=== PATIENT | male | born 1970 | race American Indian/Alaskan Native ===

== ENCOUNTER 2017-06-23 17:50 | Emergency (ER) | payer SELFPAY ==
--- NOTE | 2017-06-23 19:41 | XRay Report ---
FINAL REPORT PROCEDURE: XR HAND 2V LT TECHNIQUE: LEFT hand radiographs, AP and lateral views. CPT 06797-WO HISTORY: Deep laceration with razor. COMPARISON: No prior studies are available for comparison. FINDINGS: Fracture (s) and/or Dislocation(s): Subtle irregularity about the scaphoid. Subtle irregularity about the distal 5th finger. Alignment: Normal . Joint space(s): Normal . Soft tissues: Palmar soft tissue defect. Bone mineralization: Normal . Foreign bodies: None . IMPRESSION: Subtle irregularity about the scaphoid, likely chronic/degenerative. Consider further characterization including dedicated scaphoid views if there is concern for subtle fracture this area. Subtle irregularity about the distal 5th finger, may be related to somewhat bifid tuft of the distal phalanx. This can also be re-evaluated on followup radiographs if there is continued clinical concern. Palmar soft tissue defect, concerning for large laceration. Consider correlation clinically if this extends to the underlying bone. No radiopaque foreign body. Please note some foreign bodies are not radiopaque and therefore not visualized on radiograph.
[2017-06-23] MEDS ORDERED: XYLOCAINE 1% 20 mL ONE (20:09)
[2017-06-23] MEDS ORDERED: NACL 0.9% 500 ML IR ONE (20:35)
[2017-06-23] MEDS ORDERED: XYLOCAINE 1% 20 mL INFILTRATI ONE (20:39)
[2017-06-23] MEDS ORDERED: NACL 0.9% IR ONE (20:39)
[2017-06-23] MEDS ORDERED: XYLOCAINE 1%/ EPI 1:100,000 INFILTRATI ONE ×2 (20:46→21:00)
[2017-06-23 20:54] LABS: Basophils % (Auto) 0.2 % (0.0-1.8); Eosinophils # (Auto) 0.2 K/mm3 (0.0-0.4); Hematocrit 43.4 % (35.5-45.6); Hemoglobin 14.6 gm/dl (11.8-15.2); Lymphocytes # (Auto) 1.9 K/mm3 (1.2-5.4); Lymphocytes % (Auto) 24.6 % (13.4-35.0); Mean Corpuscular HGB Conc 34 % (32-34); Mean Corpuscular Hemoglobin 29 pg (28-32); Mean Corpuscular Volume 86 fl (84-94); Monocytes # (Auto) 0.8 K/mm3 (0.0-0.8); Monocytes % (Auto) 10.6 % (0.0-7.3); Platelet Count 252 K/mm3 (140-440); Red Blood Count 5.04 M/mm3 (3.65-5.03); Red Cell Distribution Width 13.9 % (13.2-15.2)
[2017-06-23 21:02] LABS: BUN/Creatinine Ratio 14; Blood Urea Nitrogen 13 mg/dL (9-20); Calcium 9.4 mg/dL (8.4-10.2); Hemolysis Index 14
[2017-06-23] MEDS ORDERED: NORCO 5/325 PO ONE (21:34)
[2017-06-23] MEDS ORDERED: KEFLEX PO ONE (21:34)
[2017-06-23] MEDS ORDERED: NORVASC PO ONE (21:43)
[2017-06-23] MEDS ORDERED: TRIPLE ANTIBIOTIC TP ONE (21:45)
--- NOTE | 2017-06-23 21:45 | Emergency Department Report ---
- General Chief Complaint: Wound/Laceration Stated Complaint: HAND LACERATION Time Seen by Provider: 06/23/17 20:30 Source: patient Mode of arrival: Ambulatory Limitations: No Limitations - History of Present Illness Initial Comments: 47-year-old male with a past history of hypertension noncompliant with medications for several years presents to the hospital. Laceration to left palm. Patient was operating a power tool laceration occurred. He states he is ambidextrous. No other injury reported. Patient has had hypertension for many years does not take medications and hasn't checked his blood pressure lately. Denies headache, chest pain, or shortness of breath. Last tetanus shot was 2013. - Related Data Previous Rx's Medication Instructions Recorded Last Taken Type Bacitracin/Pramoxine/Aloe Vera 1 applicatio TP TID #1 bottle 06/23/17 Unknown Rx [Bacitraycin Plus Ointment] Cephalexin [Keflex] 500 mg PO QID #28 capsule 06/23/17 Unknown Rx HYDROcodone/APAP 5-325 [[place] 1 each PO Q6HR PRN #15 tablet 06/23/17 Unknown Rx 5-325 mg TAB] Ibuprofen [Motrin] 800 mg PO Q8HR PRN #30 tablet 06/23/17 Unknown Rx amLODIPine [Norvasc] 5 mg PO DAILY #30 tablet 06/23/17 Unknown Rx Allergies Allergy/AdvReac Type Severity Reaction Status Date / Time No Known Allergies Allergy Unverified 06/23/17 17:58 ED Review of Systems ROS: Stated complaint: HAND LACERATION Other details as noted in HPI Comment: All other systems reviewed and negative Other: Constitutional: No fevers chills Eyes: No eye pain visual changes or discharge ENT: No ear pain or throat pain Neck: Denies pain Respiratory: Denies cough wheezing shortness of breath Cardiovascular: Denies chest pain, palpitations, syncope GI: Denies abdominal pain, nausea, vomiting, diarrhea, : Denies dysuria Musculoskeletal: Denies back pain Skin: As per HPI Neurologic: Denies headache, numbness, weakness Psychiatric: Denies suicidal ideation, hallucinations ED Past Medical Hx - Past Medical History Hx Hypertension: Yes - Social History Smoking Status: Current Every Day Smoker Substance Use Type: Alcohol - Medications Home Medications: Home Medications Medication Instructions Recorded Confirmed Last Taken Type Bacitracin/Pramoxine/Aloe Vera 1 applicatio TP TID #1 bottle 06/23/17 Unknown Rx [Bacitraycin Plus Ointment] Cephalexin [Keflex] 500 mg PO QID #28 capsule 06/23/17 Unknown Rx HYDROcodone/APAP 5-325 [[place] 1 each PO Q6HR PRN #15 tablet 06/23/17 Unknown Rx 5-325 mg TAB] Ibuprofen [Motrin] 800 mg PO Q8HR PRN #30 tablet 06/23/17 Unknown Rx amLODIPine [Norvasc] 5 mg PO DAILY #30 tablet 06/23/17 Unknown Rx ED Physical Exam - General Limitations: No Limitations - Other Other exam information: General: No limitations, patient is alert in no acute distress Head exam: Atraumatic, normocephalic Eyes exam: Normal appearance ENT: Moist mucous membrane, normal oropharynx Neck exam: Normal inspection, full range of motion Respiratory exam: Clear to auscultation bilateral, no wheezes, rales, crackles Cardiovascular: Normal rate and rhythm, normal heart sounds Abdomen: Soft, nondistended, and nontender, with normal bowel sounds, no rebound, or guarding Extremity: Full range of motion, Left palm laceration involving the thenar eminence extending vertically 8cm with exposed fat tissue. Sensation intact to distal fingertips. Full range of motion of thumb, fingers, and wrist. No pulsatile bleeding. 2+ radial pulse. Cap refill less than 2 seconds Back: Normal Inspection, full range of motion, no tenderness Neurologic: Alert, oriented x3, cranial nerves intact, no motor or sensory deficit Psychiatric: normal affect, normal mood Skin: Left palm laceration involving the thenar eminence extending vertically 8cm with exposed fat tissue. ED Course Vital Signs 06/23/17 06/23/17 17:54 20:41 Temperature 98.4 F Pulse Rate 89 87 Respiratory 18 18 Rate Blood Pressure 171/107 Blood Pressure 195/101 [Left] O2 Sat by Pulse 97 Oximetry - Laceration /Wound Repair Left Palm Hand Wound Location: upper extremity Wound Length (cm): 8 Wound's Depth, Shape: linear Wound Explored: no foreign body removed Irrigated w/ Saline (ccs): 500 Betadine Prep?: Yes Anesthesia: Lidocaine w/ Epi Volume Anesthetic (ccs): 8 Wound Debrided: minimal Wound Repaired With: sutures Suture Size/Type: 4:0, nylon Number of Sutures: 15 Layer Closure?: No Sterile Dressing Applied?: Yes ED Medical Decision Making - Lab Data Result diagrams: 06/23/17 20:46 06/23/17 20:46 Lab Results 06/23/17 06/23/17 Range/Units 20:46 20:46 WBC 7.7 (4.5-11.0) K/mm3 RBC 5.04 H (3.65-5.03) M/mm3 Hgb 14.6 (11.8-15.2) gm/dl Hct 43.4 (35.5-45.6) % MCV 86 (84-94) fl MCH 29 (28-32) pg MCHC 34 (32-34) % RDW 13.9 (13.2-15.2) % Plt Count 252 (140-440) K/mm3 Lymph % (Auto) 24.6 (13.4-35.0) % [place] % (Auto) 10.6 H (0.0-7.3) % Eos % (Auto) 2.0 (0.0-4.3) % Baso % (Auto) 0.2 (0.0-1.8) % Lymph # 1.9 (1.2-5.4) K/mm3 [place] # 0.8 (0.0-0.8) K/mm3 Eos # 0.2 (0.0-0.4) K/mm3 Baso # 0.0 (0.0-0.1) K/mm3 Seg Neutrophils % 62.6 (40.0-70.0) % Seg Neutrophils # 4.8 (1.8-7.7) K/mm3 Sodium 135 L (137-145) mmol/L Potassium 4.1 (3.6-5.0) mmol/L Chloride 95.5 L (98-107) mmol/L Carbon Dioxide 22 (22-30) mmol/L Anion Gap 22 mmol/L BUN 13 (9-20) mg/dL Creatinine 0.9 (0.8-1.5) mg/dL Estimated GFR > 60 ml/min BUN/Creatinine Ratio 14 % Glucose 132 H (75-100) mg/dL Calcium 9.4 (8.4-10.2) mg/dL - Radiology Data Radiology results: report reviewed Rhythm by radiologist xray left hand: Subtle irregularity around the scaphoid. Likely chronic/degenerative. Subtle irregularity about the distal fifth finger. May be related to somewhat biphasic tuft of the distal phalanx. - Medical Decision Making Patient has significant laceration that was successfully repaired in the ED with hemostasis achieved. Full range of motion sensation intact. X-ray findings noted and patient did not have any acute injury to explain scaphoid findings and has a history of a crush injury to the distal fifth finger that could explain current radiographic findings. Patient has also had hypertension and blood pressure improves with pain reduction after anesthetization of hand but still elevated. Norvasc by mouth 5 mg initiated and will be continued. Labs did not show any renal dysfunction [place] given for pain in the ED and will be continued Keflex given empirically to prevent infection and will be continued Patient hand cleansed, antibiotic and applied, and dressing applied prior to discharge Outpatient follow-up will be recommended - Differential Diagnosis laceration, fracture, foreign body Critical Care Time: No Critical care attestation.: If time is entered above; I have spent that time in minutes in the direct care of this critically ill patient, excluding procedure time. ED Disposition Clinical Impression: HTN (hypertension) Hand laceration Qualifiers: Encounter type: initial encounter Foreign body presence: without foreign body Laterality: left Qualified Code(s): S61.412A - Laceration without foreign body of left hand, initial encounter Disposition: TO HOME OR SELFCARE Is pt being admited?: No Condition: Stable Instructions: Hypertension (ED), Laceration (ED), How to Take a Blood Pressure (ED) Additional Instructions: Your stitches need to be removed in 7-10 days. You may return here. I also recommend that you also follow-up with orthopedic nurse Dr. Malone for further evaluation of your hands and wound healing. I have also provided alternative follow-up with a primary care doctor and/or a clinic for further evaluation of your hand healing and management of your blood pressure. You will be started on a blood pressure medication today. Continue to monitor your blood pressure at home, record values, and present this information to the primary care doctor. Please continue to monitor for signs of infection as discussed. Return if symptoms worsen as indicated by your discharge instructions Prescriptions: amLODIPine [Norvasc] 5 mg PO DAILY #30 tablet Bacitracin/Pramoxine/Aloe Vera [Bacitraycin Plus Ointment] 1 applicatio TP TID # 1 bottle Cephalexin [Keflex] 500 mg PO QID #28 capsule HYDROcodone/APAP 5-325 [[place] 5-325 mg TAB] 1 each PO Q6HR PRN #15 tablet PRN Reason: Pain Ibuprofen [Motrin] 800 mg PO Q8HR PRN #30 tablet PRN Reason: Pain Referrals: CASEY MALONE MD [Staff Physician] - 7-10 days (orthopedics) LARRY DEE MD [Primary Care Provider] - 3-5 Days (primary care doctor ) [facility] [Provider Group] - 3-5 Days Time of Disposition: 21:51
[2017-06-23 22:10] VITALS: BP 153/84
== END 2017-06-23 22:19 | disposition home or self-care (01) ==
LOC: ED 17:50
DX: S61.412A Laceration without foreign body of left hand, initial encounter (principal); I10 Essential (primary) hypertension; F17.200 Nicotine dependence, unspecified, uncomplicated; W29.8XXA Contact with other powered hand tools and household machinery, initial encounter; Y93.89 Activity, other specified; Y92.89 Other specified places as the place of occurrence of the external cause; Y99.8 Other external cause status
CPT/HCPCS: 36415; 80048; 85025; 99284; A6250